=== PATIENT | female | born 1960 | race Caucasian/White ===

== ENCOUNTER 2017-04-24 17:57 | Inpatient (IN) | payer OTHER ==
[~2017-04-24] VITALS: Ht 170.2 cm; Wt 89.8 kg
--- NOTE | ~2017-04-24 | HP ---
Unit #: [id number] #: [id number] Patient: CASEY FROST [id number] [address] [place], [place] [address] [id number] I MR#: [id number] NAME: CASEY FROST. ROOM: 48147 Age: 56 Sex: F Admission Date: 04/24/2017 : 1960 Attending Physician: Brittney Lua M.D. Primary Care Physician: Lonny Overton M.D. HISTORY AND PHYSICAL CHIEF COMPLAINT Alcohol induced pancreatitis. HISTORY This pleasant 56-year-old female with depression, is admitted for alcohol induced pancreatitis. The patient states that she was admitted to [facility] in December for alcohol induced pancreatitis and underwent CT scan along with ultrasound. She stopped drinking alcohol until four days ago. Over the past four days has been binge drinking wine. States that she felt as if she has flu-like symptoms two days ago. However, today developed generalized abdominal pain similar to her usual pancreatitis, radiating to her back, associated with nausea and vomiting. She presented to this emergency department tonight where labs are compatible with acute pancreatitis. She was treated with Protonix, Zofran, multiple doses of Dilaudid and bolused with IV fluids. Is continuing to experience pain. Declined a CT scan as she states that her current symptoms are similar to her previous pancreatitis in December. PAST MEDICAL HISTORY 1. Depression. 2. Alcohol induced pancreatitis, please see above details, hospitalized at [facility] in December. 3. x2. 4. Gastric sleeve. 5. BTL. 6. Bladder sling. 7. Appendectomy. 8. EGD and colonoscopy 10/2014 showing erosive esophagitis, possible Poole, gastritis, diverticular disease, two polyps, which were removed. ALLERGIES To penicillin, resulting in a rash. HOME MEDICATIONS Wellbutrin started one week ago. FAMILY HISTORY Negative for pancreatitis or pancreatic disease. SOCIAL HISTORY The patient lives with her son and his girlfriend. She is a lifelong Unit #: [id number] #: [id number] Patient: CASEY FROST nonsmoker. Does have a history of alcohol abuse. Stopped drinking in December, but started drinking again about four days ago. REVIEW OF SYSTEMS Notable for abdominal pain, nausea, vomiting, pancreatitis, depression, alcohol abuse, gastritis, and above mentioned surgeries. Other systems were reviewed and otherwise negative. PHYSICAL EXAMINATION GENERAL: Pleasant, mildly obese, 56-year-old female currently in no acute distress. VITAL SIGNS: Temperature 98.4, pulse 66, respirations 18, blood pressure 154/86, O2 saturation is 100% on room air. HEENT: Eyes - PERRLA. Extraocular muscles are intact. Pharynx is benign. NECK: Supple without adenopathy or thyromegaly. CHEST: Clear CARDIAC: Normal S1 and S2 without S3, S4 or murmur. ABDOMEN: Bowel sounds are diminished. Patient has mild generalized abdominal tenderness without rebound or guarding at this time. Perhaps a mild hepatomegaly on exam. EXTREMITIES: Without clubbing, cyanosis or edema. Pedal pulses are present. NEUROLOGIC: Patient is awake, alert and oriented. Cranial nerves are intact. Equal strength throughout. DIAGNOSTIC STUDIES ADMISSION LABS: Hematocrit is 43.6, white blood count is 11.3, MCV is 100, normal platelet count. SMA 12 - glucose is 207, sodium 130, calcium 8.3, protein 8.8. AST is 258, was noted to be high in the past, as well as ALT 126. Normal alk phos, lipase is 1,192. Alcohol level is less than 5. Urine tox screen negative. Urinalysis positive. Leukocyte esterase, nitrates, protein with 25-50 red cells, 200-300 white cells, and 3+ bacteria. ASSESSMENT 1. Alcohol induced pancreatitis. 2. Alcohol binge. 3. Urinary tract infection. 4. Hyperglycemia. 5. Elevated LFTS, likely related to alcohol abuse. 6. Depression. PLANS 1. Aggressive IV fluids, obtain I's and O's. 2. Pain control. 3. Antibiotics. 4. If not improving, would obtain a CT scan. Patient declines at present. 5. Request old records. 6. DVT and gastritis prophylaxis. 7. Benzos and vitamins. Dictated by Brittney Lua M.D. Unit #: [id number] #: [id number] Patient: CASEY FROST AML/ts TD: 04/25/2017 05:04 JOB #: [id number] HISTORY AND PHYSICAL Page 1 of 1 X Brittney Lua MD HISTORY AND PHYSICAL
--- NOTE | ~2017-04-24 | DS ---
Unit #: [id number] #: [id number] Patient: CASEY FROST [id number] [address] [address] [id number] I MR#: [id number] NAME: CASEY FROST. ROOM: 467 Age: 56 Sex: F Admission Date: 04/24/2017 : 1960 Discharge Date: 04/27/2017 Attending Physician: Sarah Urbano M.D. Primary Care Physician: Lonny Overton M.D. DISCHARGE SUMMARY FINAL DIAGNOSES 1. Final diagnoses is alcohol-induced pancreatitis, number 1. 2. Elevated blood pressure. SECONDARY DIAGNOSIS Secondary diagnosis is depression. CONSULTS None. HOSPITAL COURSE Patient is a 56-year-old female who basically presented with abdominal pain. She had an alcohol binge. She was diagnosed with alcohol-induced pancreatitis. She had elevation in her amylase and lipase, and this is trending downwards. Her liver function test is also improved. She has had episodes of this back in December of 2016 when she was admitted to [facility]. She has been advised to stay away from alcohol binging. She has been offered help with this, JADAC, upon discharge. Urine culture showed no growth. MEDICATIONS Medications on discharge include: 1. Norvasc 5 mg p.o. daily. 2. Pepcid 20 mg p.o. twice daily. 3. Multivitamin 1 tablet p.o. daily, over the counter. 4. Thiamine 100 mg p.o. daily. DISCHARGE PLAN She is scheduled to follow up PCP in next 3 to 5 days. NOTE: Time spent coordinating discharge was about 24 minutes. Dictated by... Chandler Ibanez/rocío TD: 04/27/2017 10:10 JOB #: [id number] Unit #: [id number] #: [id number] Patient: CASEY FROST DISCHARGE SUMMARY Page 1 of 1 X Kirill Correia MD DISCHARGE SUMMARY
--- NOTE | ~2017-04-24 | DS ---
Unit #: [id number] #: [id number] Patient: CASEY FROST [id number] [address] [place], [place] [address] [id number] MR#: [id number] NAME: CASEY FROST ROOM: 467 Age: 56 Sex: F Admission Date: 04/24/2017 : 1960 Discharge Date: 04/28/2017 Attending Physician: Sarah Urbano M.D. Primary Care Physician: Lonny Overton M.D. DISCHARGE SUMMARY ADDENDUM HOSPITAL COURSE The patient remained overnight following the patient yesterday due to increasing pain with eating. I will note today, the patient's lipase is mildly elevated compared to yesterday at 112, but still does not meet criteria for significant pancreatitis. Her LFTs were also mildly elevated. I will note the patient has been drinking all day and is not having any pain. I am going to monitor the next couple of hours and see how things go with the patient. She is able to drink some. She is well aware she will have to kind of maintain a bland diet at home for the next several days and increase as tolerated. If the pain worsen, she will remain in the hospital. I will note to discharge medications as dictated yesterday. I have added oxycodone 5 mg q.6 hours p.r.n. for pain number given 10. Dictated by... Sarah Urbano M.D. WADE/viridiana TD: 04/30/2017 14:02 JOB #: [id number] DISCHARGE SUMMARY Page 1 of 1 X Sarah Urbano MD X DISCHARGE SUMMARY
[~2017-04-24 17:57] MED LIST: ESTRO PO; LANSOPRAZOLE30 M3 PO; MULTIPLE VITAMI1 T11 PO; ZOLOFT50 MG PO
[2017-04-24 20:43] LABS: BASOPHIL% 0.1 % (0-2.5); HEMATOCRIT 43.6 % (35.0-45.0); HEMOGLOBIN 14.9 gm/dL (12.0-16.0); LYMPHOCYTE# 0.3 X10e3 (1.0-3.5); LYMPHOCYTE% 3.1 % (17.0-45.0); MEAN CELL VOLUME 99.9 FL (83-96); MEAN CORPUSCULAR HEMOGLOBIN 34.1 PG (28-34); MEAN CORPUSCULAR HGB CONC 34.2 g/dL (30-36); MEAN PLATELET VOLUME 7.4 FL (6.5-11.5); MONOCYTE# 1.1 X10e3 (0-1.0); MONOCYTE% 9.9 % (3.0-12.0); NEUTROPHIL# 9.8 X10e3 (1.5-7.1); NEUTROPHIL% 86.9 % (40-75); PLATELET COUNT 174 X10e3 (140-420); RED BLOOD COUNT 4.36 X10e (3.90-5.30); RED CELL DISTRIBUTION WIDTH 14.6 % (11.0-15.5); WHITE BLOOD COUNT 11.3 X10e3 (4.0-10.5)
[2017-04-24 20:50] LABS: DIFF IND NO
[2017-04-24 20:50] LABS: POC - CKMB 3.8 ng/mL (0.0-7.9); POC - TROPONIN <0.05 ng/mL (<=0.05)
[2017-04-24 21:25] LABS: ALBUMIN SERUM 4.7 g/dL (3.5-5.0); BILIRUBIN, DIRECT 0.5 mg/dL (0.0-0.2); BILIRUBIN,INDIRECT 1.5 mg/dL (0.0-0.9); BUN/CREATININE RATIO 13.75; CALCIUM SERUM 10.3 mg/dL (8.4-10.2); CREATININE SERUM 0.8 mg/dL (0.6-1.4); GLOM FILT RATE Estimated 83.7 mL/min (>60); POTASSIUM 3.7 mmol/L (3.5-5.1); PROTEIN TOTAL SERUM 8.8 g/dL (6.0-8.3)
[2017-04-24 22:15] LABS: URINE SOURCE CLEAN CATCH
[2017-04-24 22:31] LABS: AMPHETAMINE NEG (NEG); BARBITURATES NEG (NEG); BENZODIAZEPINES NEG (NEG); COCAINE NEG (NEG); MARIJUANA NEG (NEG); OPIATES NEG (NEG); TRICYCLIC ANTIDEPRESSANTS NEG (NEG); U METHADONE NEG (NEG)
[2017-04-24 22:48] LABS: URINE APPEARANCE CLOUDY; URINE COLOR DK YELLOW; URINE PH 5.5 (5-8); URINE SPECIFIC GRAVITY 1.037 (1.003-1.035)
[2017-04-24 22:49] LABS: URINE GLUCOSE 100 MG/DL (NEG); URINE KETONE 1+ (NEG); URINE LEUKOCYTE ESTERASE 2+ (NEG); URINE NITRATE POS (NEG); URINE PROTEIN 100 (NEG)
[2017-04-24 22:52] LABS: URINE BILIRUBIN POS (NEG); URINE BLOOD NEG (NEG)
[2017-04-24 22:53] LABS: CULTURE INDICATED? YES; URBCS1 AUWI 25-50 /[HPF] (0-2); URINE BACTERIA AUWI 3+ (NEGATIVE); UWBCS1 AUWI 200-300 (0-5)
[2017-04-24 22:54] LABS: URINE CRYSTALS CALCIUM OXALATE /[HPF]
[2017-04-25 04:39] LABS: HEMATOCRIT 39.8 % (35.0-45.0); HEMOGLOBIN 13.8 gm/dL (12.0-16.0); MEAN CORPUSCULAR HEMOGLOBIN 34.6 PG (28-34); MEAN CORPUSCULAR HGB CONC 34.6 g/dL (30-36); MEAN PLATELET VOLUME 7.7 FL (6.5-11.5); RED BLOOD COUNT 3.98 X10e (3.90-5.30); RED CELL DISTRIBUTION WIDTH 14.6 % (11.0-15.5); WHITE BLOOD COUNT 10.4 X10e3 (4.0-10.5)
[2017-04-25 04:50] LABS: INR 1.1; PARTIAL THROMBOPLASTIN TIME 26.6 SECONDS (23.5-31.3); PROTHROMBIN TIME (PATIENT) 12.1 SECONDS (10.0-11.7)
[2017-04-25 05:07] LABS: BILIRUBIN,TOTAL 1.3 mg/dL (0.2-2.0); BUN/CREATININE RATIO 12.85; CALCIUM SERUM 8.7 mg/dL (8.4-10.2); CREATININE SERUM 0.7 mg/dL (0.6-1.4); GLOM FILT RATE Estimated 98.2 mL/min (>60); POTASSIUM 3.9 mmol/L (3.5-5.1); PROTEIN TOTAL SERUM 7.4 g/dL (6.0-8.3)
[2017-04-26 04:23] LABS: HEMATOCRIT 37.2 % (35.0-45.0); HEMOGLOBIN 12.8 gm/dL (12.0-16.0); MEAN CORPUSCULAR HEMOGLOBIN 34.5 PG (28-34); MEAN CORPUSCULAR HGB CONC 34.5 g/dL (30-36); MEAN PLATELET VOLUME 7.5 FL (6.5-11.5); RED BLOOD COUNT 3.72 X10e (3.90-5.30); RED CELL DISTRIBUTION WIDTH 14.2 % (11.0-15.5); WHITE BLOOD COUNT 11.7 X10e3 (4.0-10.5)
[2017-04-26 05:00] LABS: ALBUMIN SERUM 3.6 g/dL (3.5-5.0); BILIRUBIN,TOTAL 1.6 mg/dL (0.2-2.0); CALCIUM SERUM 8.9 mg/dL (8.4-10.2); CREATININE SERUM 0.5 mg/dL (0.6-1.4); GLOM FILT RATE Estimated 109.7 mL/min (>60); MAGNESIUM 2.1 mg/dL (1.6-3.0); POTASSIUM 3.5 mmol/L (3.5-5.1); PROTEIN TOTAL SERUM 6.9 g/dL (6.0-8.3)
[2017-04-27 02:44] LABS: BASOPHIL% 0.4 % (0-2.5); EOSINOPHIL# 0.1 X10e3 (0-0.7); EOSINOPHIL% 0.9 % (0.0-7.0); HEMATOCRIT 37.6 % (35.0-45.0); HEMOGLOBIN 12.9 gm/dL (12.0-16.0); LYMPHOCYTE# 1.4 X10e3 (1.0-3.5); LYMPHOCYTE% 20.2 % (17.0-45.0); MEAN CORPUSCULAR HEMOGLOBIN 34.8 PG (28-34); MEAN CORPUSCULAR HGB CONC 34.4 g/dL (30-36); MEAN PLATELET VOLUME 7.7 FL (6.5-11.5); MONOCYTE# 0.8 X10e3 (0-1.0); MONOCYTE% 11.8 % (3.0-12.0); NEUTROPHIL# 4.7 X10e3 (1.5-7.1); NEUTROPHIL% 66.7 % (40-75); PLATELET COUNT 121 X10e3 (140-420); RED BLOOD COUNT 3.72 X10e (3.90-5.30)
[2017-04-27 02:49] LABS: DIFF IND NO
[2017-04-27 03:10] LABS: ALBUMIN SERUM 3.2 g/dL (3.5-5.0); BILIRUBIN,TOTAL 1.3 mg/dL (0.2-2.0); CALCIUM SERUM 8.8 mg/dL (8.4-10.2); CREATININE SERUM 0.5 mg/dL (0.6-1.4); GLOM FILT RATE Estimated 109.7 mL/min (>60); MAGNESIUM 2.1 mg/dL (1.6-3.0); POTASSIUM 3.5 mmol/L (3.5-5.1); PROTEIN TOTAL SERUM 6.7 g/dL (6.0-8.3)
[2017-04-27] MEDS ORDERED: MOTRIN400 MG PO (08:38)
[2017-04-27] MEDS ORDERED: VITAMINE B-1100 MG PO (08:43)
[2017-04-27] MEDS ORDERED: MULTI VITAMIN1 EACH PO (08:44)
[2017-04-27] MEDS ORDERED: PEPCID AC20 M2 PO (08:44)
[2017-04-27] MEDS ORDERED: NORVASC PO (08:44)
[2017-04-28 08:40] LABS: ALBUMIN SERUM 3.6 g/dL (3.5-5.0); BILIRUBIN,TOTAL 0.8 mg/dL (0.2-2.0); CALCIUM SERUM 9.3 mg/dL (8.4-10.2); CREATININE SERUM 0.5 mg/dL (0.6-1.4); GLOM FILT RATE Estimated 109.7 mL/min (>60); POTASSIUM 3.8 mmol/L (3.5-5.1); PROTEIN TOTAL SERUM 7.4 g/dL (6.0-8.3)
[2017-04-28] MEDS ORDERED: OXYCODONE HCL5 MG PO (16:40)
== END 2017-04-28 17:30 | disposition home or self-care (01) | DRG 439 ==
LOC: CED 17:57 → C4C 23:41 → CEDOF 23:41 → CED 23:41 → CEDOF 23:45 → C4C 04-25 01:57
PROVIDERS: Emergency Medicine; Family Medicine; Internal Medicine
DX: K85.20 Alcohol induced acute pancreatitis without necrosis or infection (principal); N39.0 Urinary tract infection, site not specified; D69.59 Other secondary thrombocytopenia; F10.10 Alcohol abuse, uncomplicated; Z88.0 Allergy status to penicillin; R73.9 Hyperglycemia, unspecified; F32.9 Major depressive disorder, single episode, unspecified; Z90.49 Acquired absence of other specified parts of digestive tract; R03.0 Elevated blood-pressure reading, without diagnosis of hypertension
CPT/HCPCS: 36415; 80048; 80053; 80076; 80307; 81003; 82150; 82553; 82947; 83036; 83690; 83735; 84132; 84484; 85025; 85027; 85610; 85730; 87086; 96361; 96374; 96375; 96376; 99285; C9113; G0480; J0696; J1170; J1650; J1815; J2270; J2405; J3411; J3475